=== PATIENT | male | born 1955 | race Caucasian/White ===

== ENCOUNTER → 2019-05-03 13:08 | Outpatient (CLI) | payer MEDICARE, SELFPAY ==
--- NOTE | 2019-05-03 13:16 | CT_ITS ---
PROCEDURE: CT LUNG SCREENING CLINICAL INDICATION: HX TOBACCO USE One hundred pack-year smoking history, asymptomatic for lung cancer COMPARISON: No exams were available for comparison TECHNIQUE: The exam was performed on a GE Light Speed [address] scanner using 2.90 mGy CTDI. A low dose helical CT CHEST was performed on a multi-detector scanner. All CT scans at the facility use one or more dose reduction, viz: automated exposure control, ma/kV adjustment per patient size (including targeted exams where dose is matched to indication, i.e. head), or iterative reconstruction technique. The LDCT was performed in a facility that meets the criteria for the screening program. Data regarding this exam was submitted to [employer] which is an approved registry. The order for this exam indicates that it came as a result of a lung cancer screening counseling shard decision-making visit that included all the elements required of such a visit including smoking cessation. The radiologist interpreting this exam meets the [facility] criteria for the LDCT lung cancer screening program. The exam is reported using the Lung-RADS classification scale and reported to the [employer]CR registry. NOTE: This study was performed for the specific purposes of lung cancer screening and is not an alternative to diagnostic chest CT. RADIATION DOSE: CTDI vol(CT dose Index-volume) = 2.90mG DLP (Dose Length Product) = 123.24 F mGcm FINDINGS: Centrilobular and paraseptal emphysema. 8 mm nodule in the right upper lobe posteriorly. This may contain some central calcification. Six-month follow-up is suggested. There are scattered calcified granulomas. 7 mm nodule in the left upper lobe posteriorly. 5 mm nodule left upper lobe anteriorly IMPRESSION: Lung rads category 4 a mildly suspicious regarding 8 mm right upper lobe nodule and 7 mm left upper lobe nodule Recommend diagnostic CT chest without with contrast in 3 months Dictated by: Edi Piña MD 05/04/2019 06:15 Signed by: <Electronically signed by Edi Piña MD in [place]> 05/04/2019 06:15
== END ==
PROVIDERS: PCP Internal Medicine; Visit Provider Internal Medicine
DX: Z12.2 Encounter for screening for malignant neoplasm of respiratory organs (principal); Z87.891 Personal history of nicotine dependence